=== PATIENT | male | born 1995 | race Caucasian/White ===

== ENCOUNTER 2017-03-08 19:57 | Emergency (ER) | payer SELFPAY ==
[~2017-03-08] VITALS: Ht 177.8 cm; Wt 68.2 kg
[2017-03-08 20:11] VITALS: BP 125/71; PULSE 88; TEMP 98.4
== END 2017-03-08 22:59 | disposition home or self-care (01) ==
LOC: COL.ER 19:57
DX: S61.012A Laceration without foreign body of left thumb without damage to nail, initial encounter (principal); Z23 Encounter for immunization; W26.0XXA Contact with knife, initial encounter; Y92.009 Unspecified place in unspecified non-institutional (private) residence as the place of occurrence of the external cause

== ENCOUNTER 2017-05-04 10:22 | Emergency (ER) | payer SELFPAY ==
[~2017-05-04] VITALS: Ht 177.8 cm; Wt 63.6 kg
[2017-05-04 10:32] VITALS: BP 113/64; PULSE 82; TEMP 98.2
[2017-05-04] MEDS ORDERED: ZITHROMAX Z PA250 MG PO (11:32)
== END 2017-05-04 11:50 | disposition home or self-care (01) ==
LOC: COL.ER 10:22
DX: J40 Bronchitis, not specified as acute or chronic (principal); F17.210 Nicotine dependence, cigarettes, uncomplicated; Z90.89 Acquired absence of other organs